=== PATIENT | female | born 1975 | race Two or more races ===

== ENCOUNTER → 2020-04-05 | Outpatient (CLI) | payer OTHER ==
--- NOTE | 2020-04-05 13:26 | Diagnostic Imaging Report ---
Indications: Headache for 4 days Technique: Spiral acquisitions obtained through the brain. Angled axial and coronal 5 x 5 mm slices were reconstructed. Total dose length product 1045 mGycm. CTDI vol(s) 53 mGy. Dose reduction achieved using automated exposure control Comparison: None. Findings: No acute intracranial hemorrhage or edema. No mass effect nor midline shift. Normal mejia-white differentiation. Normal size ventricles and extra axial CSF spaces. Intact calvarium. Visualized orbits and sinuses are unremarkable. The mastoids are clear. Impression: Negative The CT scanner at [facility] is accredited by the [employer] and the scans are performed using protocols designed to limit radiation exposure to as low as reasonably achievable to attain images of sufficient resolution adequate for diagnostic evaluation.
== END | disposition home or self-care (01) ==
LOC: CAT 12:23
DX: R51.9 Headache, unspecified (principal)
CPT/HCPCS: 70450